=== PATIENT | male | born 1935 | race Caucasian/White ===

== ENCOUNTER → 2016-06-28 | Outpatient (CLI) | payer MEDICARE, BC | LOC: LBRF 14:39 → LAB 14:39 | DX: B96.89 Other specified bacterial agents as the cause of diseases classified elsewhere (principal) ==

== ENCOUNTER 2016-07-01 22:30 | Emergency (ER) | payer MEDICARE, BC ==
[2016-07-02 00:13] LABS: HEMOGLOBIN 11.8 gm/dl (14.0-17.5); RED BLOOD COUNT 4.54 M/UL (4.20-5.50); WHITE BLOOD COUNT 7.1 K/UL (4.5-11.0)
== END 2016-07-02 04:00 | disposition home or self-care (01) ==
LOC: ER1 22:30
PROVIDERS: Emergency Medicine; Physician Assistant
DX: R19.7 Diarrhea, unspecified (principal); N28.9 Disorder of kidney and ureter, unspecified; I10 Essential (primary) hypertension; I25.810 Atherosclerosis of coronary artery bypass graft(s) without angina pectoris; Z95.1 Presence of aortocoronary bypass graft; Z79.82 Long term (current) use of aspirin; Z79.899 Other long term (current) drug therapy
CPT/HCPCS: 36415; 80048; 80053; 81001; 82272; 83605; 83690; 85025; 85610; 85730; 87040; 87086; 96360; 99284; J7030